=== PATIENT | female | born 1935 | race Caucasian/White ===

== ENCOUNTER → 2018-02-15 | Outpatient (CLI) | payer OTHER, BC ==
[~2018-02-15] MED LIST: APIX1TAB3 PO; ASPCH81X PO; ATOR-26 PO; BROM0.0911 OPL; CALC-354 PO; CALC500C70 PO; CARV12.5 PO; CARV25TA2 PO; CITRACAL PO; DOCU100C31 PO; FERR1TAB23 PO; FRS/40 PO; FURO-85 PO; GABA100C13 PO; ISR/30 PO; LOSA100T65 PO; MONT1TAB5 PO; NTRGSL/4 UT; OXYC-57 PO; POTA10TA PO; PRED1SUS3 OPL; PRLSR20 PO; PRVHFAIN INH; SODI5SOL4 OPB; SODIUM CHLORIDE OPB; TYLER650 PO
--- NOTE | 2018-02-15 14:07 | DIAGNOSTIC IMAGING REPORT ---
CAROTID DOPPLER NECK ART HISTORY: Mental status change OTHER VISUAL DISTURBANCES COMPARISON: None. TECHNIQUE: Real-time, grayscale, and color Doppler sonography of the carotid arteries was performed. Imaging reviewed in the transverse and longitudinal planes. All measurements were calculated based on NASCET criteria. FINDINGS: Antegrade flow is seen in the bilateral vertebral arteries. The brachial pressures are hemodynamically similar. Moderate plaque formation bilaterally The peak systolic velocity within the right ICA is 74. The right systolic ratio is 1.2. The peak systolic velocity within the left ICA is 84. The left systolic ratio is 1.2. IMPRESSION: No hemodynamically significant stenosis seen within the carotid arteries. Moderate plaque formation bilaterally The above report was generated using voice recognition software. It may contain grammatical, syntax or spelling errors. Electronically signed by: Sheldon Millard M.D. 02/15/2018 2:06 PM Dictated Date/Time: 02/15/2018 2:05 PM
[2018-02-15 16:58] LABS: HEMATOCRIT 33.6 % (37-47); MEAN CELL VOLUME 97.1 fL (80-100); MEAN CORPUSCULAR HEMOGLOBIN 31.8 pg (25-34); MEAN CORPUSCULAR HGB CONC 32.7 g/dl (32-36); MEAN PLATELET VOLUME 9.6 fL (7.4-10.4); PLATELET COUNT 391 K/uL (130-400); RED CELL DISTRIBUTION WIDTH CV 12.7 % (11.5-14.5); RED CELL DISTRIBUTION WIDTH SD 44.8 fL (36.4-46.3); WHITE BLOOD COUNT 8.16 K/uL (4.8-10.8)
== END | disposition home or self-care (01) ==
LOC: C.ULTRBC 13:34
PROVIDERS: ATTEND Ophthalmology
DX: H53.8 Other visual disturbances (principal)

== ENCOUNTER 2018-02-20 05:29 | Day surgery (SDC) | payer OTHER, BC ==
[~2018-02-20] VITALS: Ht 157.5 cm; Wt 83.0 kg
[~2018-02-20 05:29] MED LIST changes: -CALC-354 PO; -CARV25TA2 PO; -FERR1TAB23 PO; -FRS/40 PO; -MONT1TAB5 PO; -NTRGSL/4 UT; -OXYC-57 PO; -PRVHFAIN INH; -SODI5SOL4 OPB
[2018-02-20] MEDS ORDERED: CARV25TA2 PO (05:54)
[2018-02-20] MEDS ORDERED: MONT1TAB5 PO (05:57)
[2018-02-20] MEDS ORDERED: PRLSR20 PO (05:58)
[2018-02-20] MEDS ORDERED: NTRGSL/4 UT (05:59)
[2018-02-20 06:00] VITALS: BP 126/60; PULSE 93; TEMP 36.9; O2SAT 96; Ht 157.5 cm; Wt 83.0 kg
[2018-02-20] MEDS ORDERED: FRS/40 PO (06:00)
[2018-02-20] MEDS ORDERED: CALC-354 PO (06:02)
[2018-02-20] MEDS ORDERED: SODI5SOL4 OPB (06:08)
[2018-02-20] MEDS ORDERED: FERR1TAB23 PO (06:10)
[2018-02-20] MEDS ORDERED: PRVHFAIN INH (06:12)
[2018-02-20] MEDS ORDERED: LIDOCAINE HCL 1% 20 ML VIAL ONE (06:57)
[2018-02-20] MEDS ORDERED: EpHEDrine SULFATE 50MG/5ML SYR ONE (07:11)
[2018-02-20] MEDS ORDERED: PROPOFOL IV EMULSION 10 MG/ML 20 ML VIAL IV ONE ×2 (07:11→08:33)
[2018-02-20] MEDS ORDERED: PHENYLEPHRINE 100MCG/ML 5ML SYR ONE (07:11)
[2018-02-20] MEDS ORDERED: LIDOCAINE HCL 2% 2 ML VIAL (20MG/ML) ONE (07:11)
[2018-02-20] MEDS ORDERED: FENTANYL CITRATE INJ 50 MCG/1 ML 2 ML VIAL ONE (07:12)
[2018-02-20] MEDS ORDERED: MIDAZOLAM HCL 1 MG/ML 2ML VIAL ONE (07:12)
--- NOTE | 2018-02-20 07:23 | History and Physical ---
History & Physical Date Feb 20, 2018. Chief Complaint Visual disturbances right eye History of Present Illness The patient is a 82 year old female who developed visual disturbances in her right eye. She describes it as speckles. No pain associated with it. She was on Prednisone. She had a sed rate which was mildly elevated. She is here for temp artery biopsy. Vitals Vital Signs Past 12 Hours Date Time Temp Pulse Resp B/P (MAP) Pulse Ox O2 Delivery O2 Flow Rate FiO2 02/20/18 06:00 36.9 93 20 126/60 (82) 96 Room Air Allergies Coded Allergies: Morphine (Verified Adverse Reaction, Unknown, GI UPSET, 02/20/18) Home Medications Scheduled Apixaban (Eliquis), 1 TAB PO BID Aspirin (Aspirin Chewable), 81 MG PO QAM Atorvastatin (Lipitor), 80 MG PO QPM Calcium Carbonate-Cholecalcife (Caltrate 600+D), 1 TAB PO TID Carvedilol (Coreg), 1 TAB PO BID Docusate Sodium (Docusate Sodium), 1 CAP PO BID Ferrous Sulfate (Iron), 1 TAB PO DAILY Furosemide (Lasix), 40 MG PO QAM Gabapentin (Neurontin), 200 MG PO BID Montelukast Sodium (Montelukast Sodium), 1 TAB PO QPM Nitroglycerin (Nitrostat), 0.4 MG UT PRN Omeprazole (Prilosec), 40 MG PO DAILY Sodium Chloride Hypertonic (Radha 128), 1.5 INCH OPB HS [Citracal Powder], 1 DOSE PO BID Scheduled PRN Acetaminophen (Tylenol Arthitis Ext Rel), 650 MG PO Q8H PRN for Pain Albuterol (Ventolin Hfa), 2 PUFFS INH Q4 PRN for Wheezing Problem List Medical Problems: (1) Atrial fibrillation (2) Benign hypertension (3) Colonoscopy (4) History of - hysterectomy (5) History of lumbar laminectomy for decompression of spinal cord (6) Hypercholesterolemia (7) Placement of stent (8) Reflux Surgical / Medical History Hx Cardiac Surgery: Yes (cardiac stent) Hx Abdominal Surgery: Yes (hysterectomy) Hx Cancer Surgery: Yes (skin cancer) Hx Thoracic Surgery: No Hx Orthopedic: Yes (back surgery) Hx Urinary Tract Surgery: Yes (bladder sling and rectocele) HX Other Surgery: Yes (oral surgery; cataracts) Past Medical/Surgical History: Arthritis, Heart Disease, Other (cardiac stents) Social History Smoking Status: Never Smoker Hx Tobacco Use In Past Year?: No Hx Alcohol Use - Type & Amnt: No Hx Substance Use -Type & Amnt: No Review of Systems Constitutional: No chills, No diaphoresis, No fever, No malaise, No weakness, No weight gain, No weight loss, No sweats, No fatigue, No problem reported Skin: No change in color, No change in hair/nails, No dryness, No lesions, No lumps, No rash, No abnormal mole, No problem reported Eyes: + blurred vision Respiratory: No cough, No cyanosis, No RODRÍGUEZ, No hemoptysis, No orthopnea, No PND , No short of breath, No sputum production, No stridor, No wheezing, No dyspnea , No problem reported Cardiovascular: No chest pain, No chest tightness, No chest pressure, No palpitations, No syncope, No diaphoresis, No edema, No intermittent claudication , No orthopnea, No cyanosis, No mumur, No lightheadedness, No paroxysmal nocturnal dyspnea, No problem reported Gastrointestinal: No abdominal pain, No constipation, No diarrhea, No nausea, No vomiting, No anorexia, No appetite changes, No belching, No flatulence, No food intolerance, No hematemesis, No hemorrhoids, No hematochezia, No stool changes, No heartburn, No indigestion, No dysphagia, No rectal bleeding, No problem reported Genitourinary - Female: No dysmenorrhea, No dysuria, No hematuria, No hesitancy , No menorrhagia, No metrorrhagia, No , No rash, No urinary frequency, No urinary incontinence, No urinary retention, No urinary urgency, No vulvadynia , No vaginal bleeding, No vaginal discharge, No vaginal itching, No breast problems, No problem reported Musculoskeletal: No back pain, No gout, No joint pain, No joint swelling, No muscle pain, No muscle stiffness, No muscle weakness, No neck pain, No problem reported Psychiatric: No anxiety, No alcohol abuse, No auditory hallucinations, No depression, No drug abuse, No homicidal ideation, No mood changes, No suicidal ideation, No visual hallucinations, No problem reported Physical Exam Constitutional: General Apperance: heathly-appearing, well-nourished, well-developed Level of Distress: NAD Ambulation: ambulating normally Psychiatric: Mental Status: active & alert, normal mood, normal affect Orientation: oriented except where noted, to time, to place, to person Memory: recent memory normal, remote memory normal Head: normocephalic Lungs: Auscultation: breath sounds normal Cardiovascular: Heart Auscultation: RRR Peripheral Pulses: Radial Pulse: normal on the left, normal on the right Ulnar Pulse: normal on the left, normal on the right Femoral Pulse: normal on the left, normal on the right Abdomen: Inspection & Palpation: soft Musculoskeletal: normal, normal strength (5/5 throughout), normal tone Extremities: Upper Left: no cyanosis, no edema, no varicosities, no palpable cord, no clubbing, no ulcers, no mottling Lower Right: no cyanosis, no edema, no varicosities, no palpable cord, no clubbing, no ulcers, no mottling Lower Left: no cyanosis, no edema, no varicosities, no palpable cord, no clubbing, no ulcers, no mottling Neurologic: Cranial Nerves: grossly intact Sensation: grossly intact Assessment and Plan Imp: Visual disturbance Plan: Patient here for bilateral temporal artery biopsies. I have discussed the risks options and benefits of the procedure with the patient. The patient understands the risks options and benefits and agrees to the procedure.
[2018-02-20] MEDS ORDERED: CEFAZOLIN SOD 1 GM VIAL ONE (07:54)
[2018-02-20] MEDS ORDERED: ATROPINE SULFATE 0.1 MG/ML 5ML SYR IV PRN (08:15)
[2018-02-20] MEDS ORDERED: FENTANYL CITRATE INJ 50 MCG/1 ML 2 ML VIAL IV PRN (08:15)
[2018-02-20] MEDS ORDERED: EpHEDrine SULFATE INJ 50 MG/ML AMP IV PRN (08:15)
[2018-02-20] MEDS ORDERED: FLUMAZENIL 0.1 MG/1 ML 10 ML VIAL IV PRN (08:15)
[2018-02-20] MEDS ORDERED: MEPERIDINE HCL 25 MG/ML CARP IV PRN (08:15)
[2018-02-20] MEDS ORDERED: ONDANSETRON INJ 2 MG/ML 2 ML VIAL IV PRN (08:15)
[2018-02-20] MEDS ORDERED: LABETALOL HCL IV 5 MG/ML 20ML IV PRN (08:15)
[2018-02-20] MEDS ORDERED: PHENYLEPHRINE 100MCG/ML 5ML SYR IV PRN (08:15)
[2018-02-20] MEDS ORDERED: NALOXONE HCL 0.4 MG/1 ML VIAL/CARP IV PRN (08:15)
--- NOTE | 2018-02-20 08:21 | [facility] Post Operative Brief Note ---
Immediate Operative Summary Operative Date Feb 20, 2018. Pre-Operative Diagnosis Visual Disturbances Right Eye Post-Operative Diagnosis Visual Disturbances Right Eye Procedure(s) Performed Bilateral Temporal Artery Biopsies Surgeon Dr. Key Tank Truck Operator Surgeon(s) none Estimated Blood Loss 3 ml Findings Consistent with Post-Op Diagnosis Specimens A. Left Temporal Artery Biopsy B. Right Temporal Artery Biopsy Drains None Anesthesia Type MAC Complication(s) none Disposition Accompanied Pt To Recover: no Disposition: Recovery Room / PACU
[2018-02-20] MEDS ORDERED: OXYC-57 PO (08:27)
--- NOTE | 2018-02-20 08:28 | Discharge Instructions ---
Discharge Instructions Date of Service Feb 20, 2018. Visit Reason for Visit: Possible Giant Cell Arteritis Discharge Discharge Diagnosis / Problem: Temporal artery biopsies Discharge Goals Goal(s): Diagnostic testing Activity Recommendations Activity Limitations: resume your previous activity Anesthesia . Post Anesthesia Instructions: If you have had General Anesthesia or IV Sedation: * Do not drive today. * Resume driving when surgeon permits. * Do not make important decisions or sign legal documents today. * Call surgeon for: 1. Temperature elevations greater than 101 degrees F. 2. Uncontrollable pain. 3. Excessive bleeding. 4. Persistent nausea and vomiting. 5. Medication intolerance (nausea, vomiting or rash). * For nausea and vomiting use only clear liquids such as: tea, soda, bouillon until nausea subsides, then gradually increase diet as tolerated. * If you have any concerns or questions, call your surgeon's office. If physician is unavailable and it is an emergency, call 911 or go to the nearest emergency room. . Instructions / Follow-Up Instructions / Follow-Up Call [phone] to schedule a follow up appointment if one not already scheduled. ACTIVITY RECOMMENDATIONS: See Above SPECIAL CARE INSTRUCTIONS: Call your doctor if: * Temperature above 101 degrees * Pain not relieved by pain medicine ordered * There is increased drainage or redness from any incision * You have any unanswered questions or concerns. Diet Recommendations Recommended Home Diet: resume previous diet Procedures Procedures Performed: Bilateral Temporal Artery Biopsies Pending Studies Studies pending at discharge: no List of pending studies: path report Medical Emergencies . Who to Call and When: Medical Emergencies: If at any time you feel your situation is an emergency, please call 911 immediately. . Non-Emergent Contact Non-Emergency issues call your: Surgeon . . "Provider Documentation" section prepared by Brayan Key. .
[2018-02-20] MEDS ORDERED: OXYCODONE/ACETAMINOPHEN 5-325 TAB PO PRN (08:30)
--- NOTE | 2018-02-20 08:49 | Anesthesiology Progress Note ---
Anesthesia Post Op Note Date & Time Feb 20, 2018 at 08:49 Vital Signs Pain Intensity: 0 Vital Signs Past 12 Hours Date Time Temp Pulse Resp B/P (MAP) Pulse Ox O2 Delivery O2 Flow Rate FiO2 02/20/18 08:40 86 16 117/71 98 Room Air 02/20/18 08:30 80 16 97/54 98 Nasal Cannula 4 02/20/18 08:23 36 83 16 96/50 98 Nasal Cannula 4 02/20/18 06:00 36.9 93 20 126/60 (82) 96 Room Air Notes Mental Status: alert / awake / arousable, participated in evaluation Pt Amnestic to Procedure: Yes Nausea / Vomiting: adequately controlled Pain: adequately controlled Airway Patency, RR, SpO2: stable & adequate BP & HR: stable & adequate Hydration State: stable & adequate Anesthetic Complications: no major complications apparent
[2018-02-20 09:00] VITALS: BP 136/70; PULSE 80; TEMP 36.4; O2SAT 94
[2018-02-20 09:15] VITALS: BP 126/90; PULSE 85; O2SAT 96
[2018-02-20 09:30] VITALS: BP 127/64; PULSE 78; TEMP 36.4; O2SAT 97
[2018-02-20 09:45] VITALS: BP 129/70; PULSE 75; TEMP 36.4; O2SAT 96
[2018-02-20 10:00] VITALS: BP 124/67; PULSE 75; TEMP 36.4; O2SAT 96
--- NOTE | 2018-02-20 10:08 | OPERATIVE REPORT ---
DATE OF OPERATION: 02/20/2018 PREOPERATIVE DIAGNOSIS: Visual disturbance, possible arteritis. POSTOPERATIVE DIAGNOSIS: Visual disturbance, possible arteritis. PROCEDURE: Bilateral temporal artery biopsy. SURGEON: Dr. Key. ANESTHETIC: MAC. PROCEDURE INDICATIONS: The patient is an 82-year-old female with visual disturbances in her right eye. She has a mildly elevated sedimentation rate and was on steroids prior to this. A temporal artery biopsy was recommended. She understood risks, options, and benefits and agreed to have this procedure. DESCRIPTION OF PROCEDURE: The patient was taken to the operating room and placed in supine position. After the left side of the congregational area was prepped and draped in a sterile manner, local anesthetic was administered. A small longitudinal incision was made over the temporal artery pulse. This was carried down to where the temporal artery was identified. It was isolated and ligated proximally and distally and a short segment removed. Adequate hemostasis was noted. Wound was then closed with interrupted 3-0 Vicryl for subcutaneous layer and 4-0 Vicryl for subcuticular suture. Dermabond was used for dressing. After this was done, the right temporal area was prepped and draped in a sterile manner. Again, local anesthetic was administered over the pulse. Longitudinal incision was made and was carried down to where temporal artery was identified. It was ligated proximally and distally and a short segment removed. Adequate hemostasis was noted. This was also closed in the usual fashion using running 3-0 Vicryl for subcutaneous layer and 4-0 subcuticular Vicryl suture for skin edges. Dermabond was used for dressing. The patient tolerated procedures well. Neither artery showed severe inflammatory reaction in the temporal areas. The patient left the operating room in satisfactory condition and tolerated the procedures well. I attest to the content of the Intraoperative Record and any orders documented therein. Any exception s are noted below.
== END 2018-02-20 10:15 | disposition home or self-care (01) ==
LOC: C.ACU 05:29
PROVIDERS: ATTEND Surgery Vascular Surgery
DX: H53.9 Unspecified visual disturbance (principal); I25.10 Atherosclerotic heart disease of native coronary artery without angina pectoris; Z88.5 Allergy status to narcotic agent; I10 Essential (primary) hypertension; J44.9 Chronic obstructive pulmonary disease, unspecified; E78.00 Pure hypercholesterolemia, unspecified; Z79.82 Long term (current) use of aspirin; Z79.01 Long term (current) use of anticoagulants; Z79.899 Other long term (current) drug therapy; I48.91 Unspecified atrial fibrillation; Z82.49 Family history of ischemic heart disease and other diseases of the circulatory system; E66.9 Obesity, unspecified; Z68.33 Body mass index [BMI] 33.0-33.9, adult

== ENCOUNTER → 2018-03-20 | Outpatient (CLI) | payer OTHER, BC ==
[~2018-03-20] MED LIST changes: -BROM0.0911 OPL; +CALC-354 PO; -CALC500C70 PO; -CARV12.5 PO; +CARV25TA2 PO; +FERR1TAB23 PO; +FRS/40 PO; -FURO-85 PO; -ISR/30 PO; -LOSA100T65 PO; +MONT1TAB5 PO; +NTRGSL/4 UT; +OXYC-57 PO; -POTA10TA PO; -PRED1SUS3 OPL; +PRVHFAIN INH; +SODI5SOL4 OPB; -SODIUM CHLORIDE OPB
[2018-03-20 17:56] LABS: BASO % 0.8 %; BASO ABS # 0.05 K/uL (0-0.2); EOS % 6.2 %; EOS ABS # 0.38 K/uL (0-0.5); HEMATOCRIT 35.7 % (37-47); HEMOGLOBIN 11.7 g/dL (12.0-16.0); IG# 0.01 K/uL (0.00-0.02); LYMPH % 31.4 %; LYMPH ABS # 1.93 K/uL (1.2-3.4); MEAN CELL VOLUME 98.1 fL (80-100); MEAN CORPUSCULAR HEMOGLOBIN 32.1 pg (25-34); MEAN CORPUSCULAR HGB CONC 32.8 g/dl (32-36); MEAN PLATELET VOLUME 9.7 fL (7.4-10.4); MONO % 6.7 %; MONO ABS # 0.41 K/uL (0.11-0.59); NEUT % 54.7 %; NEUT ABS # 3.37 K/uL (1.4-6.5); PLATELET COUNT 340 K/uL (130-400); RED CELL DISTRIBUTION WIDTH CV 13.2 % (11.5-14.5); RED CELL DISTRIBUTION WIDTH SD 47.5 fL (36.4-46.3); WHITE BLOOD COUNT 6.15 K/uL (4.8-10.8)
[2018-03-20 18:21] LABS: BLOOD UREA NITROGEN 14 mg/dl (7-18); CALCIUM 9.2 mg/dl (8.5-10.1); CARBON DIOXIDE 31 mmol/L (21-32); CREATININE 1.33 mg/dl (0.60-1.20); GLUCOSE 161 mg/dl (70-99); POTASSIUM 3.7 mmol/L (3.5-5.1); SODIUM 140 mmol/L (136-145)
== END | disposition home or self-care (01) ==
LOC: C.LABMFLN 16:03
PROVIDERS: ATTEND Family Medicine
DX: R06.09 Other forms of dyspnea (principal); I25.10 Atherosclerotic heart disease of native coronary artery without angina pectoris